=== PATIENT | female | born 1975 | race Two or more races ===

== ENCOUNTER 2016-11-30 23:10 | Emergency (ER) | payer MEDICAID ==
[2016-11-30] MEDS ORDERED: Sodium Chloride 0.9% 1,000 ML IV SCH (23:45)
[2016-12-01] MEDS ORDERED: Pantoprazole 40 MG Vial IVPUSH ONE (00:10)
[2016-12-01] MEDS ORDERED: HYDROmorphone 1 MG/ML Syringe IVPUSH ONE ×2 (00:24→03:03)
[2016-12-01] MEDS ORDERED: NS + KCl 20mEq/L 1,000 ML IV SCH (03:15)
[2016-12-01] MEDS ORDERED: Piperacillin/Tazobactam 3.375 GM in Sodium Chloride 0.9% 50 ML IV SCH (03:15)
[2016-12-01 03:18] VITALS: BP 139/79
--- NOTE | 2016-12-01 03:18 | EDM.PDOC ---
ED HPI GENERAL MEDICAL PROBLEM - General Chief Complaint: Gastrointestinal Problem Stated Complaint: MEDICAL [facility] Time Seen by Provider: 11/30/16 23:23 Source of Information: Reports: Patient History Limitations: Reports: No Limitations - History of Present Illness INITIAL COMMENTS - FREE TEXT/NARRATIVE: History of present illness: [41-year-old female whose presenting with a history of chronic alcoholism and cirrhosis and a history of hematemesis requiring blood transfusions when she was living in [facility]. She received 3 units at that time and endoscopy at that time did show a column of esophageal varices. She presents now with an episode of hematemesis at about 10 PM. She's had no further emesis she's had no fevers or chills cough cold symptoms shortness of breath no chest pain has some mild abdominal discomfort which is chronic for her constipation diarrhea or dysuria. She recently was treated for a UTI with Bactrim and I think is just finishing that up.] Review of systems: As per history of present illness and below otherwise all systems reviewed and negative. Past medical history: As per history of present illness and as reviewed below otherwise noncontributory. Surgical history: As per history of present illness and as reviewed below otherwise noncontributory. Social history: No reported history of drug or alcohol abuse. Family history: As per history of present illness and as reviewed below otherwise noncontributory. Physical exam: Gen.: She is an alert pleasant woman that is not slurring her speech but does display signs of chronic cirrhosis with jaundice and discoloration of her skin. HEENT: Atraumatic, normocephalic, pupils reactive, negative for conjunctival pallor or scleral icterus, mucous membranes moist, throat clear, neck supple, nontender, trachea midline. Lungs: Clear to auscultation, breath sounds equal bilaterally, chest nontender. Heart: S1S2, regular, negative for clicks, rubs, or JVD. Abdomen: She has tenderness to palpation across her upper abdomen and seems to have some right lower quadrant tenderness as well. Her abdomen is slightly distended and firm. No clear rebound or peritoneal signs. Extremities: Atraumatic, negative for cords or calf pain. Neurovascular unremarkable. Neuro: Awake, alert, oriented. Cranial nerves II through XII unremarkable. Cerebellum unremarkable. Motor and sensory unremarkable throughout. Exam nonfocal. Diagnostics: [CBC shows an elevated white count of 17,500 her hemoglobin is 9.2 MCV is 100 on her complete metabolic panel her sodium and potassium was slightly low her hepatic panel showed elevation of her transaminases and alkaline phosphatase her lipase and amylase were also elevated. Abdominal pelvic CT did show hepatic cirrhosis with portal hypertension but also there was evidence for septic emboli in the middle and lower lobes of the right lung] Therapeutics: [I spoke with the hospitalist in [place] and and will be transferring her there for care. Prior to leaving we're doing blood cultures 2 and giving her 3.375 g of Zosyn IV fluids are also started with potassium chloride] Impression: [] Plan: [] Definitive disposition and diagnosis as appropriate pending reevaluation and review of above. Lower Back Pain Score (Numeric/FACES): 8 - Related Data Allergies Allergy/AdvReac Type Severity Reaction Status Date / Time morphine Allergy Tachycardia Verified 11/30/16 23:31 sumatriptan [From Imitrex] Allergy Tachycardia Verified 11/30/16 23:31 vancomycin Allergy Anaphylactic Verified 11/30/16 23:31 Shock Home Meds: Home Meds ALPRAZolam [Xanax] 0.5 mg PO DAILY PRN 12/01/16 [History] Acetaminophen [Tylenol] 650 mg PO Q6H PRN 12/01/16 [History] Citalopram Hydrobromide [Celexa] 40 mg PO DAILY 12/01/16 [History] Dextroamphetamine/Amphetamine [Adderall 30 mg Tablet] 60 mg PO TID 12/01/16 [ History] Furosemide [Lasix] 40 mg PO DAILY 12/01/16 [History] Sulfamethoxazole/Trimethoprim [Bactrim Ds Tablet] 1 each PO TID 12/01/16 [ History] Triamcinolone Acetonide [Kenalog 0.1% Crm] 0 gm TOP TID PRN 12/01/16 [History] tiZANidine HCl [Zanaflex] 4 mg PO TID 12/01/16 [History] Past Medical History Gastrointestinal History: Reports: Cirrhosis [employer] History: Reports: Psychiatric History: Reports: ADHD, Addiction Immunologic History: Reports: Other (See Below) Other Immunologic History: lupus and fibromyalgia Dermatologic History: Reports: Psoriasis - Past Surgical History GI Surgical History: Reports: Cholecystectomy Social & Family History - Tobacco Use Smoking Status *Q: Current Every Day Smoker Years of Tobacco use: 14 Packs/Tins Daily: 0.5 - Caffeine Use Caffeine Use: Reports: None - Alcohol Use Days Per Week of Alcohol Use: 7 Number of Drinks Per Day: 2 Total Drinks Per Week: 14 - Recreational Drug Use Recreational Drug Use: No ED ROS GENERAL - Review of Systems Review Of Systems: ROS reveals no pertinent complaints other than HPI. ED EXAM, GENERAL - Physical Exam Exam: See Below Course - Vital Signs Last Recorded V/S: Last Vital Signs Temp 37.0 C 11/30/16 23:32 Pulse 94 11/30/16 23:32 Resp 18 11/30/16 23:32 BP 119/75 12/01/16 01:37 Pulse Ox 95 11/30/16 23:32 - Orders/Labs/Meds Orders: Active Orders 24 hr Category Date Time Status Abdomen Pelvis wo Cont [CT] Stat Exams 12/01/16 00:35 Taken Chest 2V [CR] Stat Exams 12/01/16 01:54 Taken CULTURE BLOOD [BC] Stat Lab 12/01/16 03:00 Ordered CULTURE BLOOD [BC] Stat Lab 12/01/16 03:01 Ordered PATIENT RETYPE [BBK] Stat Lab 11/30/16 23:45 Results RED BLOOD CELLS LP [BBK] Stat Lab 11/30/16 23:45 Results TYPE AND SCREEN [BBK] Stat Lab 11/30/16 23:45 Results Piperacillin/Tazobactam [Zosyn] 3.375 gm Med 12/01/16 03:15 Ordered Sodium Chloride 0.9% [Normal Saline] 50 ml IV Q6H Sodium Chloride 0.9% [Normal Saline] 1,000 ml Med 11/30/16 23:45 Active IV ASDIRECTED Sodium Chloride 0.9% with KCl 20 mEq @ 150 mL/Hr (1000 Med 12/01/16 03:15 Ordered mL) NS + KCl 20mEq/L [Normal Saline with 20 mEq KCl] 1,000 ml IV ASDIRECTED Medication Orders Sodium Chloride (Normal Saline) 1,000 mls @ 250 mls/hr IV ASDIRECTED NANDA Last Admin: 12/01/16 00:18 Dose: 250 mls/hr Piperacillin Sod/Tazobactam (Sod 3.375 gm/ Sodium Chloride) 50 mls @ 100 mls/ hr IV Q6H NANDA Potassium Chloride/Sodium Chloride (Normal Saline With 20 Meq Kcl) 1,000 mls @ 150 mls/hr IV ASDIRECTED [facility] Labs: Laboratory Tests 11/30/16 11/30/16 11/30/16 Range/Units 23:45 23:45 23:45 WBC 17.5 H (4.5-11.0) K/uL RBC 2.75 L (3.30-5.50) M/uL Hgb 9.2 L (12.0-15.0) g/dL Hct 27.6 L (36.0-48.0) % MCV 100 H (80-98) fL MCH 34 H (27-31) pg MCHC 33 (32-36) % Plt Count 95 L (150-400) K/uL Neut % (Auto) 76 H (36-66) % Lymph % (Auto) 12 L (24-44) % [place] % (Auto) 11 H (2-6) % Eos % (Auto) 0 L (2-4) % Baso % (Auto) 1 (0-1) % PT (9.5-12.0) sec INR (0.80-1.20) Sodium 138 L (140-148) mmol/L Potassium 3.2 L (3.6-5.2) mmol/L Chloride 102 (100-108) mmol/L Carbon Dioxide 30 (21-32) mmol/L Anion Gap 9.2 (5.0-14.0) mmol/L BUN 24 H (7-18) mg/dL Creatinine 1.2 H (0.6-1.0) mg/dL Est Cr Clr Drug Dosing 62.86 mL/min Estimated GFR (MDRD) 50 L (>60) Glucose 117 H (74-106) mg/dL Calcium 7.5 L (8.5-10.1) mg/dL Total Bilirubin 5.2 H (0.2-1.0) mg/dL Direct Bilirubin 4.00 H (0.0-0.2) mg/dL Indirect Bilirubin 1.20 AST 345 H (15-37) U/L ALT 95 H (12-78) U/L Alkaline Phosphatase 232 H (46-116) U/L C-Reactive Protein 0.81 H (0.0-0.3) mg/dL Total Protein 7.6 (6.4-8.2) g/dL Albumin 2.3 L (3.4-5.0) g/dL Globulin 5.3 H (2.3-3.5) g/dL Albumin/Globulin Ratio 0.4 L (1.2-2.2) Amylase 134 H (25-115) U/L Lipase 750 H (73-393) U/L Urine Color Urine Appearance Urine pH (4.5-8.0) Ur Specific [place] (1.008-1.030) Urine Protein (NEGATIVE) mg/dL Urine Glucose (UA) (NEGATIVE) mg/dL Urine Ketones (NEGATIVE) mg/dL Urine Occult Blood (NEGATIVE) Urine Nitrite (NEGATIVE) Urine Bilirubin (NEGATIVE) Urine Urobilinogen (NORMAL) mg/dL Ur Leukocyte Esterase (NEGATIVE) Urine RBC (0-5) Urine WBC (0-5) Ur Epithelial Cells Amorphous Sediment Urine Bacteria Urine Mucus Urine Opiates Screen (NEGATIVE) Ur Oxycodone Screen (NEGATIVE) Urine Methadone Screen (NEGATIVE) Ur Propoxyphene Screen (NEGATIVE) Ur Barbiturates Screen (NEGATIVE) Ur Tricyclics Screen (NEGATIVE) Ur Phencyclidine Scrn (NEGATIVE) Ur Amphetamine Screen (NEGATIVE) U Methamphetamines Scrn (NEGATIVE) Urine MDMA Screen (NEGATIVE) U Benzodiazepines Scrn (NEGATIVE) U Cocaine Metab Screen (NEGATIVE) U Marijuana (THC) Screen (NEGATIVE) Ethyl Alcohol 375 mg/dL Blood Type Gel Antibody Screen Crossmatch 11/30/16 11/30/16 12/01/16 Range/Units 23:45 23:45 00:17 WBC (4.5-11.0) K/uL RBC (3.30-5.50) M/uL Hgb (12.0-15.0) g/dL Hct (36.0-48.0) % MCV (80-98) fL MCH (27-31) pg MCHC (32-36) % Plt Count (150-400) K/uL Neut % (Auto) (36-66) % Lymph % (Auto) (24-44) % [place] % (Auto) (2-6) % Eos % (Auto) (2-4) % Baso % (Auto) (0-1) % PT 16.1 H (9.5-12.0) sec INR 1.48 H (0.80-1.20) Sodium (140-148) mmol/L Potassium (3.6-5.2) mmol/L Chloride (100-108) mmol/L Carbon Dioxide (21-32) mmol/L Anion Gap (5.0-14.0) mmol/L BUN (7-18) mg/dL Creatinine (0.6-1.0) mg/dL Est Cr Clr Drug Dosing mL/min Estimated GFR (MDRD) (>60) Glucose (74-106) mg/dL Calcium (8.5-10.1) mg/dL Total Bilirubin (0.2-1.0) mg/dL Direct Bilirubin (0.0-0.2) mg/dL Indirect Bilirubin AST (15-37) U/L ALT (12-78) U/L Alkaline Phosphatase (46-116) U/L C-Reactive Protein (0.0-0.3) mg/dL Total Protein (6.4-8.2) g/dL Albumin (3.4-5.0) g/dL Globulin (2.3-3.5) g/dL Albumin/Globulin Ratio (1.2-2.2) Amylase (25-115) U/L Lipase (73-393) U/L Urine Color Yellow Urine Appearance Clear Urine pH 6.0 (4.5-8.0) Ur Specific [place] 1.010 (1.008-1.030) Urine Protein Negative (NEGATIVE) mg/dL Urine Glucose (UA) Normal (NEGATIVE) mg/dL Urine Ketones Negative (NEGATIVE) mg/dL Urine Occult Blood Trace (NEGATIVE) Urine Nitrite Negative (NEGATIVE) Urine Bilirubin Negative (NEGATIVE) Urine Urobilinogen 1 (NORMAL) mg/dL Ur Leukocyte Esterase Negative (NEGATIVE) Urine RBC 0-5 (0-5) Urine WBC 0-5 (0-5) Ur Epithelial Cells Moderate Amorphous Sediment Not seen Urine Bacteria Few Urine Mucus Not seen Urine Opiates Screen (NEGATIVE) Ur Oxycodone Screen (NEGATIVE) Urine Methadone Screen (NEGATIVE) Ur Propoxyphene Screen (NEGATIVE) Ur Barbiturates Screen (NEGATIVE) Ur Tricyclics Screen (NEGATIVE) Ur Phencyclidine Scrn (NEGATIVE) Ur Amphetamine Screen (NEGATIVE) U Methamphetamines Scrn (NEGATIVE) Urine MDMA Screen (NEGATIVE) U Benzodiazepines Scrn (NEGATIVE) U Cocaine Metab Screen (NEGATIVE) U Marijuana (THC) Screen (NEGATIVE) Ethyl Alcohol mg/dL Blood Type A POSITIVE Gel Antibody Screen Negative Crossmatch See Detail 12/01/16 Range/Units 00:17 WBC (4.5-11.0) K/uL RBC (3.30-5.50) M/uL Hgb (12.0-15.0) g/dL Hct (36.0-48.0) % MCV (80-98) fL MCH (27-31) pg MCHC (32-36) % Plt Count (150-400) K/uL Neut % (Auto) (36-66) % Lymph % (Auto) (24-44) % [place] % (Auto) (2-6) % Eos % (Auto) (2-4) % Baso % (Auto) (0-1) % PT (9.5-12.0) sec INR (0.80-1.20) Sodium (140-148) mmol/L Potassium (3.6-5.2) mmol/L Chloride (100-108) mmol/L Carbon Dioxide (21-32) mmol/L Anion Gap (5.0-14.0) mmol/L BUN (7-18) mg/dL Creatinine (0.6-1.0) mg/dL Est Cr Clr Drug Dosing mL/min Estimated GFR (MDRD) (>60) Glucose (74-106) mg/dL Calcium (8.5-10.1) mg/dL Total Bilirubin (0.2-1.0) mg/dL Direct Bilirubin (0.0-0.2) mg/dL Indirect Bilirubin AST (15-37) U/L ALT (12-78) U/L Alkaline Phosphatase (46-116) U/L C-Reactive Protein (0.0-0.3) mg/dL Total Protein (6.4-8.2) g/dL Albumin (3.4-5.0) g/dL Globulin (2.3-3.5) g/dL Albumin/Globulin Ratio (1.2-2.2) Amylase (25-115) U/L Lipase (73-393) U/L Urine Color Urine Appearance Urine pH (4.5-8.0) Ur Specific [place] (1.008-1.030) Urine Protein (NEGATIVE) mg/dL Urine Glucose (UA) (NEGATIVE) mg/dL Urine Ketones (NEGATIVE) mg/dL Urine Occult Blood (NEGATIVE) Urine Nitrite (NEGATIVE) Urine Bilirubin (NEGATIVE) Urine Urobilinogen (NORMAL) mg/dL Ur Leukocyte Esterase (NEGATIVE) Urine RBC (0-5) Urine WBC (0-5) Ur Epithelial Cells Amorphous Sediment Urine Bacteria Urine Mucus Urine Opiates Screen Negative (NEGATIVE) Ur Oxycodone Screen Negative (NEGATIVE) Urine Methadone Screen Negative (NEGATIVE) Ur Propoxyphene Screen Negative (NEGATIVE) Ur Barbiturates Screen Negative (NEGATIVE) Ur Tricyclics Screen Negative (NEGATIVE) Ur Phencyclidine Scrn Negative (NEGATIVE) Ur Amphetamine Screen Negative (NEGATIVE) U Methamphetamines Scrn Negative (NEGATIVE) Urine MDMA Screen Negative (NEGATIVE) U Benzodiazepines Scrn Positive H (NEGATIVE) U Cocaine Metab Screen Negative (NEGATIVE) U Marijuana (THC) Screen Negative (NEGATIVE) Ethyl Alcohol mg/dL Blood Type Gel Antibody Screen Crossmatch Meds: Medications Generic Name Dose Route Start Last Admin Trade Name Freq PRN Reason Stop Dose Admin Sodium Chloride 1,000 mls @ 250 mls/hr 11/30/16 23:45 12/01/16 00:18 Normal Saline IV 250 mls/hr ASDIRECTED NANDA Administration Piperacillin Sod/Tazobactam 50 mls @ 100 mls/hr 12/01/16 03:15 Sod 3.375 gm/ Sodium Chloride IV Q6H NANDA Potassium Chloride/Sodium Chloride 1,000 mls @ 150 mls/hr 12/01/16 03:15 Normal Saline With 20 Meq Kcl IV ASDIRECTED NANDA Discontinued Medications Generic Name Dose Route Start Last Admin Trade Name Freq PRN Reason Stop Dose Admin Hydromorphone HCl 1 mg 12/01/16 00:24 12/01/16 00:58 Dilaudid IVPUSH 12/01/16 00:25 1 mg ONETIME ONE Administration Hydromorphone HCl 1 mg 12/01/16 03:03 Dilaudid IVPUSH 12/01/16 03:04 ONETIME ONE Pantoprazole Sodium 40 mg 12/01/16 00:10 12/01/16 00:29 Protonix Iv IVPUSH 12/01/16 00:11 40 mg ONETIME ONE Administration Departure - Departure Time of Disposition: 03:18 Disposition: DC/[facility]fer to [facility] 02 Clinical Impression: Cirrhosis Qualifiers: Hepatic cirrhosis type: unspecified hepatic cirrhosis Ascites presence: without ascites Qualified Code(s): K74.60 - Unspecified cirrhosis of liver Pneumonia Qualifiers: Pneumonia type: due to unspecified organism Laterality: right Lung location: unspecified part of lung Qualified Code(s): J18.9 - Pneumonia, unspecified organism Hematemesis Qualifiers: Nausea presence: with nausea Qualified Code(s): K92.0 - Hematemesis; R11.0 - Nausea Abdominal pain Qualifiers: Abdominal location: unspecified location Qualified Code(s): R10.9 - Unspecified abdominal pain Anemia Qualifiers: Anemia type: unspecified type Qualified Code(s): D64.9 - Anemia, unspecified - Discharge Information Referrals: PCP,None [Primary Care Provider] - - My Orders Last 24 Hours: My Active Orders 11/30/16 23:45 PATIENT RETYPE [BBK] Stat RED BLOOD CELLS LP [BBK] Stat TYPE AND SCREEN [BBK] Stat Sodium Chloride 0.9% [Normal Saline] 1,000 ml IV ASDIRECTED 12/01/16 00:35 Abdomen Pelvis wo Cont [CT] Stat 12/01/16 01:54 Chest 2V [CR] Stat 12/01/16 03:00 CULTURE BLOOD [BC] Stat 12/01/16 03:01 CULTURE BLOOD [BC] Stat 12/01/16 03:15 Piperacillin/Tazobactam [Zosyn] 3.375 gm Sodium Chloride 0.9% [Normal Saline] 50 ml IV Q6H Sodium Chloride 0.9% with KCl 20 mEq @ 150 mL/Hr (1000 mL) NS + KCl 20mEq/L [ Normal Saline with 20 mEq KCl] 1,000 ml IV ASDIRECTED - Assessment/Plan Last 24 Hours: My Active Orders 11/30/16 23:45 PATIENT RETYPE [BBK] Stat RED BLOOD CELLS LP [BBK] Stat TYPE AND SCREEN [BBK] Stat Sodium Chloride 0.9% [Normal Saline] 1,000 ml IV ASDIRECTED 12/01/16 00:35 Abdomen Pelvis wo Cont [CT] Stat 12/01/16 01:54 Chest 2V [CR] Stat 12/01/16 03:00 CULTURE BLOOD [BC] Stat 12/01/16 03:01 CULTURE BLOOD [BC] Stat 12/01/16 03:15 Piperacillin/Tazobactam [Zosyn] 3.375 gm Sodium Chloride 0.9% [Normal Saline] 50 ml IV Q6H Sodium Chloride 0.9% with KCl 20 mEq @ 150 mL/Hr (1000 mL) NS + KCl 20mEq/L [ Normal Saline with 20 mEq KCl] 1,000 ml IV ASDIRECTED
--- NOTE | 2016-12-02 12:40 | CR ---
Mild cardiomegaly. Left lung is clear. No definitive airspace disease evident. Refer to CT report..
== END 2016-12-01 04:07 ==
LOC: JP.ED 23:10
DX: K74.60 Unspecified cirrhosis of liver (principal); J18.9 Pneumonia, unspecified organism; K92.0 Hematemesis; D64.9 Anemia, unspecified; F90.9 Attention-deficit hyperactivity disorder, unspecified type; Z90.49 Acquired absence of other specified parts of digestive tract; F17.210 Nicotine dependence, cigarettes, uncomplicated; Z79.899 Other long term (current) drug therapy; Z88.5 Allergy status to narcotic agent; Z88.1 Allergy status to other antibiotic agents; Z88.8 Allergy status to other drugs, medicaments and biological substances
CPT/HCPCS: 36415; 71020; 74176; 80048; 80076; 80305; 81001; 82150; 83690; 85025; 85610; 86140; 86850; 86900; 86901; 86920; 86922; 87040; 96365; 96375; 96376; 99285; C9113; G0480; J1170; J2543; J3480; J7040; J7050

== ENCOUNTER 2016-12-29 18:54 | Emergency (ER) | payer MEDICAID ==
[2016-12-29] MEDS ORDERED: Sodium Chloride 0.9% 1,000 ML IV SCH (19:15)
[2016-12-29] MEDS ORDERED: Ketorolac 30 MG/ML SDV IVPUSH ONE (19:24)
[2016-12-29] MEDS ORDERED: diphenhydrAMINE 50 MG/ML SDV IVPUSH ONE (19:24)
[2016-12-29] MEDS ORDERED: Potassium Chloride 20 MEQ Tab.ER PO ONE (20:14)
[2016-12-29 20:37] VITALS: BP 138/98
[2016-12-29] MEDS ORDERED: Oxymetazoline 0.05% Nasal Spray 15 ML Bottle NAS ONE (21:08)
--- NOTE | 2016-12-29 21:09 | EDM.PDOC ---
ED HPI GENERAL MEDICAL PROBLEM - General Chief Complaint: Headache Stated Complaint: MEDICAL VIA [facility] Time Seen by Provider: 12/29/16 18:55 Source of Information: Reports: Patient History Limitations: Reports: No Limitations - History of Present Illness INITIAL COMMENTS - FREE TEXT/NARRATIVE: pt arrived with a headache. Her pulse was rapid and she has had nosebleeds. She has a history of cirrohosis and was recently in the hosp at [place] with a pneumonia. She did go through etoh withdrawal while in [place]. She did not drink for 2 days and then she started drinking alot again., Onset: Gradual Duration: Day(s):, Other (Pt has continued to drink on a regular basis. ) Location: Reports: Head Quality: Reports: Ache, Sharp, Other (pt has been having nose bleeds for the last few days. ) Associated Symptoms: Reports: Other (Pt has been eating but not well. ) Headache Pain Score (Numeric/FACES): 5 - Related Data Allergies Allergy/AdvReac Type Severity Reaction Status Date / Time morphine Allergy Tachycardia Verified 11/30/16 23:31 sumatriptan [From Imitrex] Allergy Tachycardia Verified 11/30/16 23:31 tizanidine [From Zanaflex] Allergy Nausea and Verified 12/29/16 21:08 Vomiting vancomycin Allergy Anaphylactic Verified 11/30/16 23:31 Shock Home Meds: Home Meds ALPRAZolam [Xanax] 0.5 mg PO DAILY PRN 12/01/16 [History] Acetaminophen [Tylenol] 650 mg PO Q6H PRN 12/01/16 [History] Citalopram Hydrobromide [Celexa] 40 mg PO DAILY 12/01/16 [History] Dextroamphetamine/Amphetamine [Adderall 30 mg Tablet] 60 mg PO TID 12/01/16 [ History] Furosemide [Lasix] 40 mg PO DAILY 12/01/16 [History] Triamcinolone Acetonide [Kenalog 0.1% Crm] 0 gm TOP TID PRN 12/01/16 [History] Past Medical History HEENT History: Reports: Epistaxis, Other (See Below) Other HEENT History: recent nosebleeds with clots quit 2 h ago Cardiovascular History: Reports: Other (See Below) Other Cardiovascular History: tachy Gastrointestinal History: Reports: Cirrhosis, GI Bleed, Jaundice, Other (See Below) Other Gastrointestinal History: cirrhosis hx 2 1/2 y. 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 hpv Immunologic History: Reports: Other (See Below) Other Immunologic History: lupus and fibromyalgia Dermatologic History: Reports: Psoriasis - Infectious Disease History Infectious Disease History: Reports: Human Papilloma Virus (HPV) - Past Surgical History HEENT Surgical History: Reports: Laser Surgery, Other (See Below) GI Surgical History: Reports: Cholecystectomy Social & Family History - Tobacco Use Smoking Status *Q: Current Every Day Smoker Years of Tobacco use: 23 Packs/Tins Daily: 1 - Caffeine Use Caffeine Use: Reports: None - Alcohol Use Days Per Week of Alcohol Use: 7 Number of Drinks Per Day: 2 Total Drinks Per Week: 14 Date of Last Drink: 12/29/16 Time of Last Drink: 16:45 - Recreational Drug Use Recreational Drug Use: No ED ROS GENERAL - Review of Systems Review Of Systems: See Below Constitutional: Reports: No Symptoms, Decreased Appetite HEENT: Reports: Nosebleed Respiratory: Reports: No Symptoms Cardiovascular: Reports: Palpitations, Other (pt has felt like her heart has been rapid. ) Endocrine: Reports: No Symptoms GI/Abdominal: Reports: Decreased Appetite : Reports: No Symptoms, Other ( history of frequent infections. ) Musculoskeletal: Reports: No Symptoms Skin: Reports: No Symptoms Neurological: Reports: No Symptoms - Physical Exam Exam: See Below Text/Narrative:: pt arrived and she has been drinking today . She has a headache. She was at a memorial service for her boyfriends father today so it was a very emotional day. She noted that her pulse was up and she was having the nosebleeds. Exam Limited By: No Limitations General Appearance: Alert, Anxious, Mild Distress, Other ( Pt is not having an active bleeding from the nose. She does have some clots present. in the nares. ) Ears: Normal TMs Nose: Normal Inspection Throat/Mouth: Normal Inspection Head Exam: Atraumatic, Other (pupils are equal and reactive. ) Neck: Normal Inspection Respiratory/Chest: No Respiratory Distress, Other ( Pt has good o2 sats. ) Cardiovascular: Regular Rate, Rhythm, Tachycardia, Other ( Pts pulse did come down in the 90s. ) GI/Abdominal: Soft, Non-Tender, Hepatomegaly, Other (pt does not appear distended. ) (Female) Exam: Deferred Rectal (Female) Exam: Deferred Neuro Exam (Abbreviated): Alert, Oriented, Normal Cognition, Other (pt is clearing jaundiced. ) Back Exam: Normal Inspection Extremities: Normal Inspection Psychiatric: Anxious Skin Exam: Other ( jaundiced. ) Course - Vital Signs Last Recorded V/S: Last Vital Signs Temp 37.2 C 12/29/16 18:57 Pulse 104 H 12/29/16 21:11 Resp 16 12/29/16 20:23 BP 138/98 H 12/29/16 20:23 Pulse Ox 94 L 12/29/16 20:23 - Orders/Labs/Meds Labs: Laboratory Tests 12/29/16 12/29/16 12/29/16 Range/Units 19:13 19:27 19:27 WBC 13.8 H (4.5-11.0) K/uL RBC 2.70 L (3.30-5.50) M/uL Hgb 9.4 L (12.0-15.0) g/dL Hct 29.6 L (36.0-48.0) % MCV 110 H (80-98) fL MCH 35 H (27-31) pg MCHC 32 (32-36) % Plt Count 105 L (150-400) K/uL Neut % (Auto) 62 (36-66) % Lymph % (Auto) 23 L (24-44) % [place] % (Auto) 14 H (2-6) % Eos % (Auto) 0 L (2-4) % Baso % (Auto) 1 (0-1) % PT (9.5-12.0) sec INR (0.80-1.20) APTT (27.0-36.0) sec Sodium 142 (140-148) mmol/L Potassium 3.2 L (3.6-5.2) mmol/L Chloride 106 (100-108) mmol/L Carbon Dioxide 26 (21-32) mmol/L Anion Gap 13.2 (5.0-14.0) mmol/L BUN 12 (7-18) mg/dL Creatinine 0.7 (0.6-1.0) mg/dL Est Cr Clr Drug Dosing 107.77 mL/min Estimated GFR (MDRD) > 60 (>60) Glucose 111 H (74-106) mg/dL Calcium 7.4 L (8.5-10.1) mg/dL Total Bilirubin 7.2 H (0.2-1.0) mg/dL AST 457 H (15-37) U/L ALT 115 H (12-78) U/L Alkaline Phosphatase 175 H (46-116) U/L Total Protein 7.3 (6.4-8.2) g/dL Albumin 2.2 L (3.4-5.0) g/dL Globulin 5.1 H (2.3-3.5) g/dL Albumin/Globulin Ratio 0.4 L (1.2-2.2) Amylase (25-115) U/L Lipase (73-393) U/L Urine Color Urine Appearance Cloudy Urine pH 5.0 (4.5-8.0) Ur Specific [place] 1.020 (1.008-1.030) Urine Protein 100 H (NEGATIVE) mg/dL Urine Glucose (UA) Normal (NEGATIVE) mg/dL Urine Ketones 15 H (NEGATIVE) mg/dL Urine Occult Blood Large (NEGATIVE) Urine Nitrite Positive H (NEGATIVE) Urine Bilirubin Moderate (NEGATIVE) Urine Urobilinogen >=12 H (NORMAL) mg/dL Ur Leukocyte Esterase Small (NEGATIVE) Urine RBC 0-5 (0-5) Urine WBC 0-5 (0-5) Ur Epithelial Cells Many Amorphous Sediment Few Urine Bacteria Few Urine Mucus Many Ethyl Alcohol mg/dL 12/29/16 12/29/16 12/29/16 Range/Units 19:27 19:27 19:27 WBC (4.5-11.0) K/uL RBC (3.30-5.50) M/uL Hgb (12.0-15.0) g/dL Hct (36.0-48.0) % MCV (80-98) fL MCH (27-31) pg MCHC (32-36) % Plt Count (150-400) K/uL Neut % (Auto) (36-66) % Lymph % (Auto) (24-44) % [place] % (Auto) (2-6) % Eos % (Auto) (2-4) % Baso % (Auto) (0-1) % PT 16.4 H (9.5-12.0) sec INR 1.51 H (0.80-1.20) APTT 33.2 (27.0-36.0) sec Sodium (140-148) mmol/L Potassium (3.6-5.2) mmol/L Chloride (100-108) mmol/L Carbon Dioxide (21-32) mmol/L Anion Gap (5.0-14.0) mmol/L BUN (7-18) mg/dL Creatinine (0.6-1.0) mg/dL Est Cr Clr Drug Dosing mL/min Estimated GFR (MDRD) (>60) Glucose (74-106) mg/dL Calcium (8.5-10.1) mg/dL Total Bilirubin (0.2-1.0) mg/dL AST (15-37) U/L ALT (12-78) U/L Alkaline Phosphatase (46-116) U/L Total Protein (6.4-8.2) g/dL Albumin (3.4-5.0) g/dL Globulin (2.3-3.5) g/dL Albumin/Globulin Ratio (1.2-2.2) Amylase (25-115) U/L Lipase 649 H (73-393) U/L Urine Color Urine Appearance Urine pH (4.5-8.0) Ur Specific [place] (1.008-1.030) Urine Protein (NEGATIVE) mg/dL Urine Glucose (UA) (NEGATIVE) mg/dL Urine Ketones (NEGATIVE) mg/dL Urine Occult Blood (NEGATIVE) Urine Nitrite (NEGATIVE) Urine Bilirubin (NEGATIVE) Urine Urobilinogen (NORMAL) mg/dL Ur Leukocyte Esterase (NEGATIVE) Urine RBC (0-5) Urine WBC (0-5) Ur Epithelial Cells Amorphous Sediment Urine Bacteria Urine Mucus Ethyl Alcohol 337 mg/dL 12/29/16 Range/Units 20:21 WBC (4.5-11.0) K/uL RBC (3.30-5.50) M/uL Hgb (12.0-15.0) g/dL Hct (36.0-48.0) % MCV (80-98) fL MCH (27-31) pg MCHC (32-36) % Plt Count (150-400) K/uL Neut % (Auto) (36-66) % Lymph % (Auto) (24-44) % [place] % (Auto) (2-6) % Eos % (Auto) (2-4) % Baso % (Auto) (0-1) % PT (9.5-12.0) sec INR (0.80-1.20) APTT (27.0-36.0) sec Sodium (140-148) mmol/L Potassium (3.6-5.2) mmol/L Chloride (100-108) mmol/L Carbon Dioxide (21-32) mmol/L Anion Gap (5.0-14.0) mmol/L BUN (7-18) mg/dL Creatinine (0.6-1.0) mg/dL Est Cr Clr Drug Dosing mL/min Estimated GFR (MDRD) (>60) Glucose (74-106) mg/dL Calcium (8.5-10.1) mg/dL Total Bilirubin (0.2-1.0) mg/dL AST (15-37) U/L ALT (12-78) U/L Alkaline Phosphatase (46-116) U/L Total Protein (6.4-8.2) g/dL Albumin (3.4-5.0) g/dL Globulin (2.3-3.5) g/dL Albumin/Globulin Ratio (1.2-2.2) Amylase 107 (25-115) U/L Lipase (73-393) U/L Urine Color Urine Appearance Urine pH (4.5-8.0) Ur Specific [place] (1.008-1.030) Urine Protein (NEGATIVE) mg/dL Urine Glucose (UA) (NEGATIVE) mg/dL Urine Ketones (NEGATIVE) mg/dL Urine Occult Blood (NEGATIVE) Urine Nitrite (NEGATIVE) Urine Bilirubin (NEGATIVE) Urine Urobilinogen (NORMAL) mg/dL Ur Leukocyte Esterase (NEGATIVE) Urine RBC (0-5) Urine WBC (0-5) Ur Epithelial Cells Amorphous Sediment Urine Bacteria Urine Mucus Ethyl Alcohol mg/dL Meds: Medications Discontinued Medications Generic Name Dose Route Start Last Admin Trade Name Freq PRN Reason Stop Dose Admin Citalopram Hydrobromide 10 mg 12/30/16 09:00 12/29/16 21:24 Celexa PO 10 mg DAILY NANDA Administration Citalopram Hydrobromide Confirm 12/29/16 21:22 Celexa Administered 12/29/16 21:23 Dose 10 mg .ROUTE .STK-MED ONE Diphenhydramine HCl 25 mg 12/29/16 19:24 12/29/16 19:43 Benadryl IVPUSH 12/29/16 19:25 25 mg ONETIME ONE Administration Sodium Chloride 1,000 mls @ 999 mls/hr 12/29/16 19:15 12/29/16 19:39 Normal Saline IV 999 mls/hr ASDIRECTED NANDA Administration Ketorolac Tromethamine 30 mg 12/29/16 19:24 12/29/16 19:42 Toradol IVPUSH 12/29/16 19:25 30 mg ONETIME ONE Administration Oxymetazoline HCl 2 ml 12/29/16 21:08 12/29/16 21:15 Afrin Original 0.05% Nasal [place] MELISSA 12/29/16 21:09 2 spray ONETIME ONE Administration Potassium Chloride 20 meq 12/29/16 20:14 12/29/16 20:23 Klor-Con M20 PO 12/29/16 20:15 20 meq ONETIME ONE Administration - Re-Assessments/Exams Free Text/Narrative Re-Assessment/Exam: 12/29/16 21:18 pt was given a liter of fluid. Her liver enzymes are more elevated. She has continued to drink and has a etoh level of .337. She has a bilirubin in the 7 range. Her lipase is elevated but lower than the last visit here. She has stopped her meds. She has a elevated ptt and inr. She feels she needs to be at home because how her boyfriend is doing. We discussed her drinking pattern and she clearly needs to cur 12/29/16 21:t back drasticly. Her urine looks infected. 1 Departure - Departure Time of Disposition: 21:23 Disposition: Home, Self-Care 01 Condition: Fair Clinical Impression: ETOH abuse, Jaundice, Dehydration, UTI (urinary tract infection) Cirrhosis of liver Qualifiers: Hepatic cirrhosis type: unspecified hepatic cirrhosis Ascites presence: without ascites Qualified Code(s): K74.60 - Unspecified cirrhosis of liver - Discharge Information Instructions: Alcoholic Liver Disease, Cirrhosis Referrals: PCP,None [Primary Care Provider] - Forms: ED Department Discharge Care Plan Goals: push fluids, augmentin 875 1 tab bid for urine infection, resume celexa, lasix , xanax.[address] Collin Stewart fri or fri. Pt needs to gradually stop drinking.
[2016-12-29] MEDS ORDERED: Citalopram 10 MG Tab ONE (21:22)
[2016-12-30] MEDS ORDERED: Citalopram 10 MG Tab PO SCH (09:00)
--- NOTE | 2016-12-30 10:37 | CR ---
Portable chest Comparison: 01 December 2016. There is stable mild cardiac enlargement. The vascular structures are stable. There are no infiltrate s or effusions. Impression: 1. Stable exam. No acute findings.
== END 2016-12-29 21:38 | disposition home or self-care (01) ==
LOC: JP.ED 18:54
DX: E86.0 Dehydration (principal); F10.10 Alcohol abuse, uncomplicated; N39.0 Urinary tract infection, site not specified; K74.60 Unspecified cirrhosis of liver; L40.9 Psoriasis, unspecified; F17.210 Nicotine dependence, cigarettes, uncomplicated; Z90.49 Acquired absence of other specified parts of digestive tract; Z98.890 Other specified postprocedural states; Z88.1 Allergy status to other antibiotic agents; Z88.5 Allergy status to narcotic agent; Z88.8 Allergy status to other drugs, medicaments and biological substances; Z79.899 Other long term (current) drug therapy; Y90.8 Blood alcohol level of 240 mg/100 ml or more
CPT/HCPCS: 36415; 71010; 80053; 81001; 82150; 83690; 85025; 85610; 85730; 87086; 96361; 96374; 96375; 99284; A9270; G0480; J1200; J1885; J7040; 99283

== ENCOUNTER 2017-04-30 21:07 | Emergency (ER) | payer MEDICAID ==
--- NOTE | 2017-04-30 21:55 | EDM.PDOC ---
ED HPI GENERAL MEDICAL PROBLEM - General Chief Complaint: Abdominal Pain Stated Complaint: MEDICAL VIA [facility] Time Seen by Provider: 04/30/17 21:40 Source of Information: Reports: Patient, Old Records History Limitations: Reports: No Limitations - History of Present Illness INITIAL COMMENTS - FREE TEXT/NARRATIVE: 42 yo female with known liver dz from alcohol presents with increasing ascites and RUQ pain over the past several days. Has not been to the clinic. Has been splitting her time over the past several mos between [place] and [place]. Thinks she may have a sinus infection. May have had a fever 3 days ago, not now. Her urine is dark now as it was in the past when she was jaundiced. Is drinking again at least 3 days/week. Lives now in [place]. Has seen Dr. Stewart locally. Is out of her spironolactone. Onset: Gradual Onset Date: 04/27/17 Duration: Day(s):, Getting Worse Location: Reports: Abdomen Quality: Reports: Sharp (RUQ at times) Severity: Moderate Improves with: Reports: None Worsens with: Reports: Other (? alcohol consumption.) Context: Reports: Other (Hx of liver dz) Associated Symptoms: Reports: Rash. 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 below) (none, not taking her lactulose lately) Right Abdomen Pain Score (Numeric/FACES): 9 - Related Data Allergies Allergy/AdvReac Type Severity Reaction Status Date / Time morphine Allergy Tachycardia Verified 04/30/17 21:14 sumatriptan [From Imitrex] Allergy Tachycardia Verified 04/30/17 21:14 tizanidine [From Zanaflex] Allergy Nausea and Verified 04/30/17 21:14 Vomiting vancomycin Allergy Anaphylactic Verified 04/30/17 21:14 Shock Home Meds: Home Meds Furosemide [Lasix] 40 mg PO DAILY 12/01/16 [History] Triamcinolone Acetonide [Kenalog 0.1% Crm] 0 gm TOP TID PRN 12/01/16 [History] Amoxicillin 875 mg PO BID #14 tab 04/30/17 [Rx] Ferrous Sulfate 325 mg PO DAILY 04/30/17 [History] Magnesium Oxide [Magnesium] 400 mg PO DAILY 04/30/17 [History] Midodrine 5 mg PO DAILY 04/30/17 [History] Multivitamin with Folic Acid [Thera Tablet] 400 mcg PO DAILY 04/30/17 [History] Pantoprazole Sodium 40 mg PO DAILY 04/30/17 [History] Rifaximin [Xifaxan] 550 mg PO DAILY 04/30/17 [History] Spironolactone [Aldactone] 50 mg PO DAILY 04/30/17 [History] Spironolactone [Aldactone] 50 mg PO DAILY #30 tab 04/30/17 [Rx] Past Medical History HEENT History: Reports: Epistaxis Other HEENT History: recent nosebleeds with clots quit 2 h ago Cardiovascular History: Reports: Other (See Below) Other Cardiovascular History: tachy Gastrointestinal History: Reports: Cirrhosis, GI Bleed, Jaundice, Other (See Below) Other Gastrointestinal History: cirrhosis hx 2 1/2 y. 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 hpv Immunologic History: Reports: Other (See Below) Other Immunologic History: lupus and fibromyalgia Dermatologic History: Reports: Psoriasis - Infectious Disease History Infectious Disease History: Reports: Human Papilloma Virus (HPV) - Past Surgical History HEENT Surgical History: Reports: Laser Surgery GI Surgical History: Reports: Cholecystectomy Social & Family History - Tobacco Use Smoking Status *Q: Current Every Day Smoker Years of Tobacco use: 25 Packs/Tins Daily: 0.5 - Caffeine Use Caffeine Use: Reports: None - Alcohol Use Days Per Week of Alcohol Use: 3 Number of Drinks Per Day: 4 Total Drinks Per Week: 12 Date of Last Drink: 04/30/17 Time of Last Drink: 15:30 - Recreational Drug Use Recreational Drug Use: No ED ROS GENERAL - Review of Systems Review Of Systems: See Below Constitutional: Reports: No Symptoms HEENT: Reports: Other (yellow eyes) Respiratory: Reports: No Symptoms Cardiovascular: Reports: No Symptoms Endocrine: Reports: No Symptoms GI/Abdominal: Reports: Abdominal Pain (intermittently, RUQ), Distension (ascites ). Denies: Black Stool, Bloody Stool, Constipation, Diarrhea : Reports: Other (dark urine) Musculoskeletal: Reports: No Symptoms Skin: Reports: Rash (diffuse) Neurological: Reports: No Symptoms ED EXAM, GI/ABD - Physical Exam Exam: See Below Exam Limited By: No Limitations General Appearance: Alert, WD/WN, No Apparent Distress Ears: Normal External Exam, Normal Canal, Hearing Grossly Normal Nose: Normal Inspection, Normal Mucosa, No Blood Throat/Mouth: Normal Inspection, Normal Lips, Normal Oropharynx, Normal Voice, No Airway Compromise Head: Atraumatic, Normocephalic Neck: Normal Inspection Respiratory/Chest: No Respiratory Distress, Lungs Clear, Normal Breath Sounds, No Accessory Muscle Use Cardiovascular: Regular Rate, Rhythm, Tachycardia GI/Abdominal Exam: Normal Bowel Sounds, Soft, Distended (mildy distended.), Tender (Mild RUQ tenderness.) Back Exam: Normal Inspection. No: CVA Tenderness (R), CVA Tenderness (L) Extremities: Normal Inspection, Normal Range of Motion, Non-Tender, Pedal Edema (trace to both LE's) Neurological: Alert, Oriented, CN II-XII Intact, Normal Cognition, No Motor/ Sensory Deficits Psychiatric: Normal Affect, Normal Mood Skin Exam: Warm, Dry, Intact, Rash (diffuse, slightly raised, fine.) Course - Vital Signs Last Recorded V/S: Last Vital Signs Temp 37.1 C 04/30/17 21:15 Pulse 114 H 04/30/17 21:15 Resp 16 04/30/17 21:15 BP 161/89 H 04/30/17 21:15 Pulse Ox 99 04/30/17 21:15 Orthostatic Blood Pressure [ 149/85 Standing] Orthostatic Blood Pressure [ 140/83 Sitting] Orthostatic Blood Pressure [ 129/73 Supine] - Orders/Labs/Meds Orders: Active Orders 24 hr Category Date Time Status Orthostatic Vital Signs [RC] ASDIRECTED Care 04/30/17 21:49 Active Labs: Laboratory Tests 04/30/17 04/30/17 04/30/17 Range/Units 21:55 21:55 22:17 WBC 14.8 H (4.5-11.0) K/uL RBC 3.14 L (3.30-5.50) M/uL Hgb 10.5 L (12.0-15.0) g/dL Hct 32.4 L (36.0-48.0) % MCV 103 H (80-98) fL MCH 33 H (27-31) pg MCHC 32 (32-36) % Plt Count 127 L (150-400) K/uL Sodium 144 (140-148) mmol/L Potassium 3.6 (3.6-5.2) mmol/L Chloride 109 H (100-108) mmol/L Carbon Dioxide 30 (21-32) mmol/L Anion Gap 8.6 (5.0-14.0) mmol/L BUN 10 (7-18) mg/dL Creatinine 0.8 (0.6-1.0) mg/dL Est Cr Clr Drug Dosing 92.77 mL/min Estimated GFR (MDRD) > 60 (>60) Glucose 92 (74-106) mg/dL Calcium 8.4 L (8.5-10.1) mg/dL Total Bilirubin 5.3 H (0.2-1.0) mg/dL AST 121 H (15-37) U/L ALT 53 (12-78) U/L Alkaline Phosphatase 216 H (46-116) U/L C-Reactive Protein 0.42 H (0.0-0.3) mg/dL Total Protein 6.2 L (6.4-8.2) g/dL Albumin 1.9 L (3.4-5.0) g/dL Globulin 4.3 H (2.3-3.5) g/dL Albumin/Globulin Ratio 0.4 L (1.2-2.2) Urine Color Urine Appearance Cloudy Urine pH 5.0 (4.5-8.0) Ur Specific [place] 1.025 (1.008-1.030) Urine Protein Trace (NEGATIVE) mg/dL Urine Glucose (UA) Normal (NEGATIVE) mg/dL Urine Ketones 15 H (NEGATIVE) mg/dL Urine Occult Blood Negative (NEGATIVE) Urine Nitrite Negative (NEGATIVE) Urine Bilirubin Moderate (NEGATIVE) Urine Urobilinogen 4 (NORMAL) mg/dL Ur Leukocyte Esterase Small (NEGATIVE) Urine RBC 0-5 (0-5) Urine WBC 0-5 (0-5) Ur Epithelial Cells Many Amorphous Sediment Not seen Urine Bacteria Many Urine Mucus Rare Meds: Medications Discontinued Medications Generic Name Dose Route Start Last Admin Trade Name Freq PRN Reason Stop Dose Admin Spironolactone 50 mg 04/30/17 23:13 04/30/17 23:34 Aldactone PO 04/30/17 23:14 50 mg ONETIME ONE Administration Departure - Departure Time of Disposition: 23:45 Disposition: Home, Self-Care 01 Condition: Fair Clinical Impression: ETOH abuse, Jaundice, Medical non-compliance Cirrhosis Qualifiers: Hepatic cirrhosis type: alcoholic cirrhosis Ascites presence: with ascites Qualified Code(s): K70.31 - Alcoholic cirrhosis of liver with ascites Sinusitis Qualifiers: Sinusitis location: frontal Chronicity: acute Recurrence: non-recurrent Qualified Code(s): J01.10 - Acute frontal sinusitis, unspecified - Discharge Information Referrals: PCP,None [Primary Care Provider] - Forms: ED Department Discharge - My Orders Last 24 Hours: My Active Orders 04/30/17 21:49 Orthostatic Vital Signs [RC] ASDIRECTED - Assessment/Plan Last 24 Hours: My Active Orders 04/30/17 21:49 Orthostatic Vital Signs [RC] ASDIRECTED
[2017-04-30] MEDS ORDERED: Spironolactone 25 MG Tab PO ONE (23:13)
[2017-04-30 23:37] VITALS: BP 132/72
== END 2017-05-01 00:15 | disposition home or self-care (01) ==
LOC: JP.ED 21:07
DX: K70.31 Alcoholic cirrhosis of liver with ascites (principal); J01.10 Acute frontal sinusitis, unspecified; F10.10 Alcohol abuse, uncomplicated; Z91.14 Patient's other noncompliance with medication regimen; F17.210 Nicotine dependence, cigarettes, uncomplicated; Z88.8 Allergy status to other drugs, medicaments and biological substances; Z88.5 Allergy status to narcotic agent; Z88.1 Allergy status to other antibiotic agents
CPT/HCPCS: 36415; 80053; 81001; 85027; 86140; 99284; A9270

== ENCOUNTER 2017-07-26 17:29 | Emergency (ER) | payer MEDICAID ==
[2017-07-26 17:59] VITALS: BP 162/91
--- NOTE | 2017-07-26 18:50 | EDM.PDOC ---
ED HPI GENERAL MEDICAL PROBLEM - General Chief Complaint: ENT Problem Stated Complaint: COUGHING UP BLOOD Time Seen by Provider: 07/26/17 18:05 Source of Information: Reports: Patient History Limitations: Reports: No Limitations - History of Present Illness INITIAL COMMENTS - FREE TEXT/NARRATIVE: 42-year-old female, chronic alcoholic with cirrhosis and medical noncompliance presents with several day history of sinus congestion, intermittent epistaxis, cough, and hemoptysis. No fevers or chills but she feels fatigued and has increased peripheral edema. She has been without her regular medications for the last 3 weeks. Denies any chest pain. Some shortness of breath with activity. Onset: Gradual (Over the past week) Associated Symptoms: Reports: Cough, Malaise, Shortness of Breath, Weakness. Denies: Fever/Chills, Headaches - Related Data Allergies Allergy/AdvReac Type Severity Reaction Status Date / Time morphine Allergy Tachycardia Verified 07/26/17 17:59 sumatriptan [From Imitrex] Allergy Tachycardia Verified 07/26/17 17:59 tizanidine [From Zanaflex] Allergy Nausea and Verified 07/26/17 17:59 Vomiting vancomycin Allergy Anaphylactic Verified 07/26/17 17:59 Shock Home Meds: Home Meds Furosemide [Lasix] 40 mg PO DAILY 12/01/16 [History] Triamcinolone Acetonide [Kenalog 0.1% Crm] 0 gm TOP TID PRN 12/01/16 [History] Ferrous Sulfate 325 mg PO DAILY 04/30/17 [History] Magnesium Oxide [Magnesium] 400 mg PO DAILY 04/30/17 [History] Midodrine 5 mg PO DAILY 04/30/17 [History] Multivitamin with Folic Acid [Thera Tablet] 400 mcg PO DAILY 04/30/17 [History] Pantoprazole Sodium 40 mg PO DAILY 04/30/17 [History] Rifaximin [Xifaxan] 550 mg PO DAILY 04/30/17 [History] Spironolactone [Aldactone] 50 mg PO DAILY #30 tab 04/30/17 [Rx] Past Medical History HEENT History: Reports: Epistaxis Other HEENT History: recent nosebleeds with clots quit 2 h ago Cardiovascular History: Reports: Afib, Other (See Below) Other Cardiovascular History: tachy Gastrointestinal History: Reports: Cirrhosis, GI Bleed, Jaundice, Other (See Below) Other Gastrointestinal History: cirrhosis hx 2 1/2 y. 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 hpv Immunologic History: Reports: Other (See Below) Other Immunologic History: lupus and fibromyalgia Dermatologic History: Reports: Psoriasis - Infectious Disease History Infectious Disease History: Reports: Human Papilloma Virus (HPV) - Past Surgical History HEENT Surgical History: Reports: Laser Surgery GI Surgical History: Reports: Cholecystectomy Social & Family History - Tobacco Use Smoking Status *Q: Current Every Day Smoker Years of Tobacco use: 20 Packs/Tins Daily: 0.5 - Caffeine Use Caffeine Use: Reports: None - Alcohol Use Days Per Week of Alcohol Use: 7 Number of Drinks Per Day: 3 Total Drinks Per Week: 21 Date of Last Drink: 07/26/17 - Recreational Drug Use Recreational Drug Use: Yes Recreational Drug Type: Reports: Marijuana/Hashish Recreational Drug Use Frequency: Socially ED ROS GENERAL - Review of Systems Review Of Systems: See Below Constitutional: Reports: Chills, Malaise HEENT: Reports: Sinus Problem (Congestion and drainage) Respiratory: Reports: Shortness of Breath, Cough, Hemoptysis Cardiovascular: Denies: Chest Pain, Palpitations GI/Abdominal: Reports: Nausea. Denies: Abdominal Pain, Vomiting Skin: Reports: Other Neurological: Reports: Weakness. Denies: Headache ED EXAM, GENERAL - Physical Exam Exam: See Below Exam Limited By: No Limitations General Appearance: Alert, No Apparent Distress Eye Exam: Bilateral Eye: Normal Inspection (No jaundice) Throat/Mouth: Normal Inspection Head: Atraumatic Respiratory/Chest: No Respiratory Distress, Lungs Clear Cardiovascular: Regular Rate, Rhythm, Tachycardia Extremities: Pedal Edema (She has a trace bilateral peripheral edema) Neurological: Alert, Oriented, No Motor/Sensory Deficits Skin Exam: Warm, Dry, Other (Widespread psoriasis plaques on the extremities and back) Course - Vital Signs Last Recorded V/S: Last Vital Signs Temp 96.7 F 07/26/17 17:58 Pulse 123 H 07/26/17 17:58 Resp 16 07/26/17 17:58 BP 162/91 H 07/26/17 17:58 Pulse Ox 98 07/26/17 17:58 - Orders/Labs/Meds Orders: Active Orders 24 hr Category Date Time Status Chest 2V [CR] Routine Exams 07/26/17 18:16 Taken CULTURE URINE [RM] Stat Lab 07/26/17 19:23 Received DRUG SCREEN, URINE [URCHEM] Stat Lab 07/26/17 19:00 Ordered HCG QUALITATIVE,URINE [URCHEM] Stat Lab 07/26/17 19:00 Ordered UA W/MICROSCOPIC [URIN] Urgent Lab 07/26/17 19:00 Ordered Labs: Laboratory Tests 07/26/17 07/26/17 07/26/17 Range/Units 18:27 18:27 18:27 WBC 11.4 H (4.5-11.0) K/uL RBC 3.59 (3.30-5.50) M/uL Hgb 12.1 (12.0-15.0) g/dL Hct 36.3 (36.0-48.0) % MCV 101 H (80-98) fL MCH 34 H (27-31) pg MCHC 33 (32-36) % Plt Count 93 L (150-400) K/uL Neut % (Auto) 49 (36-66) % Lymph % (Auto) 38 (24-44) % [place] % (Auto) 11 H (2-6) % Eos % (Auto) 2 (2-4) % Baso % (Auto) 1 (0-1) % Sodium 143 (140-148) mmol/L Potassium 4.1 (3.6-5.2) mmol/L Chloride 108 (100-108) mmol/L Carbon Dioxide 26 (21-32) mmol/L Anion Gap 8.9 (5.0-14.0) mmol/L BUN 9 (7-18) mg/dL Creatinine 0.7 (0.6-1.0) mg/dL Est Cr Clr Drug Dosing 106.69 mL/min Estimated GFR (MDRD) > 60 (>60) Glucose 113 H (74-106) mg/dL Calcium 7.7 L (8.5-10.1) mg/dL Total Bilirubin 4.6 H (0.2-1.0) mg/dL AST 295 H D (15-37) U/L ALT 86 H (12-78) U/L Alkaline Phosphatase 226 H (46-116) U/L Ammonia 13 (11-32) mmol/L Total Protein 7.2 (6.4-8.2) g/dL Albumin 2.4 L (3.4-5.0) g/dL Globulin 4.8 H (2.3-3.5) g/dL Albumin/Globulin Ratio 0.5 L (1.2-2.2) Urine Color Urine Appearance Urine pH (4.5-8.0) Ur Specific [place] (1.008-1.030) Urine Protein (NEGATIVE) mg/dL Urine Glucose (UA) (NEGATIVE) mg/dL Urine Ketones (NEGATIVE) mg/dL Urine Occult Blood (NEGATIVE) Urine Nitrite (NEGATIVE) Urine Bilirubin (NEGATIVE) Urine Urobilinogen (NORMAL) mg/dL Ur Leukocyte Esterase (NEGATIVE) Urine RBC (0-5) Urine WBC (0-5) Ur Epithelial Cells Amorphous Sediment Urine Bacteria Urine Mucus Urine HCG, Qual Urine Opiates Screen (NEGATIVE) Ur Oxycodone Screen (NEGATIVE) Urine Methadone Screen (NEGATIVE) Ur Propoxyphene Screen (NEGATIVE) Ur Barbiturates Screen (NEGATIVE) Ur Tricyclics Screen (NEGATIVE) Ur Phencyclidine Scrn (NEGATIVE) Ur Amphetamine Screen (NEGATIVE) U Methamphetamines Scrn (NEGATIVE) Urine MDMA Screen (NEGATIVE) U Benzodiazepines Scrn (NEGATIVE) U Cocaine Metab Screen (NEGATIVE) U Marijuana (THC) Screen (NEGATIVE) Ethyl Alcohol mg/dL 07/26/17 07/26/17 07/26/17 Range/Units 18:27 19:00 19:00 WBC (4.5-11.0) K/uL RBC (3.30-5.50) M/uL Hgb (12.0-15.0) g/dL Hct (36.0-48.0) % MCV (80-98) fL MCH (27-31) pg MCHC (32-36) % Plt Count (150-400) K/uL Neut % (Auto) (36-66) % Lymph % (Auto) (24-44) % [place] % (Auto) (2-6) % Eos % (Auto) (2-4) % Baso % (Auto) (0-1) % Sodium (140-148) mmol/L Potassium (3.6-5.2) mmol/L Chloride (100-108) mmol/L Carbon Dioxide (21-32) mmol/L Anion Gap (5.0-14.0) mmol/L BUN (7-18) mg/dL Creatinine (0.6-1.0) mg/dL Est Cr Clr Drug Dosing mL/min Estimated GFR (MDRD) (>60) Glucose (74-106) mg/dL Calcium (8.5-10.1) mg/dL Total Bilirubin (0.2-1.0) mg/dL AST (15-37) U/L ALT (12-78) U/L Alkaline Phosphatase (46-116) U/L Ammonia (11-32) mmol/L Total Protein (6.4-8.2) g/dL Albumin (3.4-5.0) g/dL Globulin (2.3-3.5) g/dL Albumin/Globulin Ratio (1.2-2.2) Urine Color [place] Urine Appearance Cloudy Urine pH 6.0 (4.5-8.0) Ur Specific [place] 1.020 (1.008-1.030) Urine Protein 30 H (NEGATIVE) mg/dL Urine Glucose (UA) Normal (NEGATIVE) mg/dL Urine Ketones Negative (NEGATIVE) mg/dL Urine Occult Blood Moderate (NEGATIVE) Urine Nitrite Negative (NEGATIVE) Urine Bilirubin Moderate (NEGATIVE) Urine Urobilinogen >=12 H (NORMAL) mg/dL Ur Leukocyte Esterase Moderate (NEGATIVE) Urine RBC 10-20 H (0-5) Urine WBC 10-20 H (0-5) Ur Epithelial Cells Many Amorphous Sediment Few Urine Bacteria Many Urine Mucus Not seen Urine HCG, Qual Negative Urine Opiates Screen (NEGATIVE) Ur Oxycodone Screen (NEGATIVE) Urine Methadone Screen (NEGATIVE) Ur Propoxyphene Screen (NEGATIVE) Ur Barbiturates Screen (NEGATIVE) Ur Tricyclics Screen (NEGATIVE) Ur Phencyclidine Scrn (NEGATIVE) Ur Amphetamine Screen (NEGATIVE) U Methamphetamines Scrn (NEGATIVE) Urine MDMA Screen (NEGATIVE) U Benzodiazepines Scrn (NEGATIVE) U Cocaine Metab Screen (NEGATIVE) U Marijuana (THC) Screen (NEGATIVE) Ethyl Alcohol 420 mg/dL 07/26/17 Range/Units 19:00 WBC (4.5-11.0) K/uL RBC (3.30-5.50) M/uL Hgb (12.0-15.0) g/dL Hct (36.0-48.0) % MCV (80-98) fL MCH (27-31) pg MCHC (32-36) % Plt Count (150-400) K/uL Neut % (Auto) (36-66) % Lymph % (Auto) (24-44) % [place] % (Auto) (2-6) % Eos % (Auto) (2-4) % Baso % (Auto) (0-1) % Sodium (140-148) mmol/L Potassium (3.6-5.2) mmol/L Chloride (100-108) mmol/L Carbon Dioxide (21-32) mmol/L Anion Gap (5.0-14.0) mmol/L BUN (7-18) mg/dL Creatinine (0.6-1.0) mg/dL Est Cr Clr Drug Dosing mL/min Estimated GFR (MDRD) (>60) Glucose (74-106) mg/dL Calcium (8.5-10.1) mg/dL Total Bilirubin (0.2-1.0) mg/dL AST (15-37) U/L ALT (12-78) U/L Alkaline Phosphatase (46-116) U/L Ammonia (11-32) mmol/L Total Protein (6.4-8.2) g/dL Albumin (3.4-5.0) g/dL Globulin (2.3-3.5) g/dL Albumin/Globulin Ratio (1.2-2.2) Urine Color Urine Appearance Urine pH (4.5-8.0) Ur Specific [place] (1.008-1.030) Urine Protein (NEGATIVE) mg/dL Urine Glucose (UA) (NEGATIVE) mg/dL Urine Ketones (NEGATIVE) mg/dL Urine Occult Blood (NEGATIVE) Urine Nitrite (NEGATIVE) Urine Bilirubin (NEGATIVE) Urine Urobilinogen (NORMAL) mg/dL Ur Leukocyte Esterase (NEGATIVE) Urine RBC (0-5) Urine WBC (0-5) Ur Epithelial Cells Amorphous Sediment Urine Bacteria Urine Mucus Urine HCG, Qual Urine Opiates Screen Negative (NEGATIVE) Ur Oxycodone Screen Negative (NEGATIVE) Urine Methadone Screen Negative (NEGATIVE) Ur Propoxyphene Screen Negative (NEGATIVE) Ur Barbiturates Screen Negative (NEGATIVE) Ur Tricyclics Screen Negative (NEGATIVE) Ur Phencyclidine Scrn Negative (NEGATIVE) Ur Amphetamine Screen Negative (NEGATIVE) U Methamphetamines Scrn Negative (NEGATIVE) Urine MDMA Screen Negative (NEGATIVE) U Benzodiazepines Scrn Negative (NEGATIVE) U Cocaine Metab Screen Negative (NEGATIVE) U Marijuana (THC) Screen Negative (NEGATIVE) Ethyl Alcohol mg/dL - Re-Assessments/Exams Free Text/Narrative Re-Assessment/Exam: 07/26/17 18:49 A two-view chest x-ray was obtained along with CBC and CMP with ammonia level. An EtOH was drawn. A urine was obtained for urine , UA and urine tox screen. 07/26/17 19:13 Hemoglobin was normal. Chemistry profile revealed a bilirubin of 4.6 which is actually the best level she's had over the past year compared to previous levels. Ammonia was only 13. Blood alcohol was 0.42. All her other liver enzymes were elevated as well. White count was 11,400. Urine was negative, urine tox screen was negative but she did have 10-20 RBCs and WBCs with bacteria so a culture was initiated. 07/26/17 19:23 Patient was placed on ciprofloxacin 250 mg twice daily for 3 days, and given prescriptions for 2 weeks of furosemide 40 mg daily, and spironolactone 50 mg daily. She needs to recheck with her primary provider this week for a recheck. Departure - Departure Time of Disposition: 19:34 Disposition: Home, Self-Care 01 Condition: Fair Clinical Impression: Bronchitis Alcohol intoxication Qualifiers: Complication of substance-induced condition: uncomplicated Qualified Code(s): F10.920 - Alcohol use, unspecified with intoxication, uncomplicated UTI (urinary tract infection) Qualifiers: Urinary tract infection type: acute cystitis Hematuria presence: with hematuria Qualified Code(s): N30.01 - Acute cystitis with hematuria - Discharge Information Instructions: Acute Bronchitis, Adult, [id number] Referrals: Vijay Stewart Sr, MD [Primary Care Provider] - Forms: ED Department Discharge Care Plan Goals: Take antibiotic twice daily for 3 days, fill prescriptions for furosemide and spironolactone and take as directed. Recheck this week with Dr. Stewart. Consuming any alcohol is going to continue to make you sicker. - My Orders Last 24 Hours: My Active Orders 07/26/17 18:16 Chest 2V [CR] Routine 07/26/17 19:00 DRUG SCREEN, URINE [URCHEM] Stat HCG QUALITATIVE,URINE [URCHEM] Stat UA W/MICROSCOPIC [URIN] Urgent 07/26/17 19:23 CULTURE URINE [RM] Stat - Assessment/Plan Last 24 Hours: My Active Orders 07/26/17 18:16 Chest 2V [CR] Routine 07/26/17 19:00 DRUG SCREEN, URINE [URCHEM] Stat HCG QUALITATIVE,URINE [URCHEM] Stat UA W/MICROSCOPIC [URIN] Urgent 07/26/17 19:23 CULTURE URINE [RM] Stat
--- NOTE | 2017-07-28 10:28 | CR ---
Chest 2V INDICATION: dyspnea COMPARISON: 12/29/2016 FINDINGS: Two views. Heart upper limits of normal in size. No infiltrates, pleural effusions, or signs of pulmonary edema.
== END 2017-07-26 19:33 | disposition home or self-care (01) ==
LOC: JP.ED 17:29
DX: J40 Bronchitis, not specified as acute or chronic (principal); F10.120 Alcohol abuse with intoxication, uncomplicated; Y90.8 Blood alcohol level of 240 mg/100 ml or more; N30.01 Acute cystitis with hematuria; F17.210 Nicotine dependence, cigarettes, uncomplicated; Z88.5 Allergy status to narcotic agent; Z88.8 Allergy status to other drugs, medicaments and biological substances
CPT/HCPCS: 36415; 71046; 80053; 80305; 81001; 81025; 82140; 85025; 87086; 87088; 87186; 99284; G0480

== ENCOUNTER 2017-08-09 14:16 | Emergency (ER) | payer MEDICAID ==
[2017-08-09 14:31] VITALS: BP 142/76
--- NOTE | 2017-08-09 15:03 | EDM.PDOC ---
ED HPI GENERAL MEDICAL PROBLEM - General Chief Complaint: General Stated Complaint: POSSIBLE BLOOD CLOT IN RT LEG Time Seen by Provider: 08/09/17 14:40 Source of Information: Reports: Patient, Old Records History Limitations: Reports: No Limitations - History of Present Illness INITIAL COMMENTS - FREE TEXT/NARRATIVE: 42 yo non-compliant female alcoholic presents with pain and swelling since yesterday to her R medial thigh. She denies exertion or injury to the area. She called the clinic and was referred to the ER. Says she bruises easily and gets nose bleeds often. 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: Other (see below) (none) right thigh Pain Score (Numeric/FACES): 6 - Related Data Allergies Allergy/AdvReac Type Severity Reaction Status Date / Time morphine Allergy Tachycardia Verified 08/09/17 14:32 sumatriptan [From Imitrex] Allergy Tachycardia Verified 08/09/17 14:32 tizanidine [From Zanaflex] Allergy Nausea and Verified 08/09/17 14:32 Vomiting vancomycin Allergy Anaphylactic Verified 08/09/17 14:32 Shock Home Meds: Home Meds Furosemide [Lasix] 40 mg PO DAILY 12/01/16 [History] Triamcinolone Acetonide [Kenalog 0.1% Crm] 0 gm TOP TID PRN 12/01/16 [History] Ferrous Sulfate 325 mg PO DAILY 04/30/17 [History] Magnesium Oxide [Magnesium] 400 mg PO DAILY 04/30/17 [History] Midodrine 5 mg PO DAILY 04/30/17 [History] Multivitamin with Folic Acid [Thera Tablet] 400 mcg PO DAILY 04/30/17 [History] Pantoprazole Sodium 40 mg PO DAILY 04/30/17 [History] Rifaximin [Xifaxan] 550 mg PO DAILY 04/30/17 [History] Spironolactone [Aldactone] 50 mg PO DAILY #30 tab 04/30/17 [Rx] oxyCODONE HCl [Oxaydo] 5 mg PO Q4HR PRN #14 tablet.orl 08/09/17 [Rx] Past Medical History HEENT History: Reports: Epistaxis Other HEENT History: recent nosebleeds with clots quit 2 h ago Cardiovascular History: Reports: Afib, Other (See Below) Other Cardiovascular History: tachy Respiratory History: Reports: Other (See Below) Other Respiratory History: upper respiratory failure. history of intubation Gastrointestinal History: Reports: Cirrhosis, GI Bleed, Jaundice, Other (See Below) Other Gastrointestinal History: cirrhosis hx 2 1/2 y. 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 hpv Immunologic History: Reports: Other (See Below) Other Immunologic History: lupus and fibromyalgia Dermatologic History: Reports: Psoriasis - Infectious Disease History Infectious Disease History: Reports: Human Papilloma Virus (HPV) - Past Surgical History HEENT Surgical History: Reports: Laser Surgery GI Surgical History: Reports: Cholecystectomy Social & Family History - Tobacco Use Smoking Status *Q: Current Every Day Smoker Years of Tobacco use: 15 Packs/Tins Daily: 1 - Caffeine Use Caffeine Use: Reports: None - Alcohol Use Days Per Week of Alcohol Use: 7 Number of Drinks Per Day: 3 Total Drinks Per Week: 21 - Recreational Drug Use Recreational Drug Use: Yes Recreational Drug Use Frequency: Monthly ED ROS GENERAL - Review of Systems Review Of Systems: See Below Constitutional: Reports: No Symptoms HEENT: Reports: No Symptoms Respiratory: Reports: No Symptoms Cardiovascular: Reports: No Symptoms GI/Abdominal: Reports: No Symptoms : Reports: No Symptoms Musculoskeletal: Reports: Leg Pain (R thigh medially with some mild swelling.) Skin: Reports: Bruising (R medial thigh) Neurological: Reports: No Symptoms ED EXAM, GENERAL - Physical Exam Exam: See Below Exam Limited By: No Limitations General Appearance: Alert, WD/WN, No Apparent Distress Eye Exam: Bilateral Eye: Other (mild scleral icterus) Ears: Normal External Exam, Normal Canal, Hearing Grossly Normal Ear Exam: Bilateral Ear: Auricle Normal, Canal Normal Nose: Normal Inspection, Normal Mucosa, No Blood Throat/Mouth: Normal Inspection, Normal Lips, Normal Oropharynx, Normal Voice, No Airway Compromise Head: Atraumatic, Normocephalic Neck: Normal Inspection Respiratory/Chest: No Respiratory Distress, Lungs Clear, Normal Breath Sounds, No Accessory Muscle Use Cardiovascular: Regular Rate, Rhythm, No Edema GI/Abdominal: Normal Bowel Sounds, Non-Tender, No Distention Back Exam: Normal Inspection. No: CVA Tenderness (R), CVA Tenderness (L) Extremities: Normal Range of Motion, Other (Tenderness to the medial R thigh with bruising medially. Mild diffuse thigh swelling. No swelling distally below the knee. No calf pain.). No: Increased Warmth Neurological: Alert, Oriented, CN II-XII Intact, Normal Cognition, No Motor/ Sensory Deficits Psychiatric: Normal Affect, Normal Mood Skin Exam: Warm, Dry, Intact, No Rash, Ecchymosis (R medial thigh) Course - Vital Signs Last Recorded V/S: Last Vital Signs Temp 35.8 C 08/09/17 14:30 Pulse 115 H 08/09/17 14:30 Resp 16 08/09/17 14:30 BP 142/76 H 08/09/17 14:30 Pulse Ox 98 08/09/17 14:30 Departure - Departure Time of Disposition: 15:08 Disposition: Home, Self-Care 01 Condition: Fair Clinical Impression: Liver disease due to alcohol Thigh hematoma Qualifiers: Encounter type: initial encounter Laterality: right Qualified Code(s): S70.11XA - Contusion of right thigh, initial encounter - Discharge Information Referrals: PCP,None [Primary Care Provider] -
== END 2017-08-09 15:22 | disposition home or self-care (01) ==
LOC: JP.ED 14:16
DX: K70.9 Alcoholic liver disease, unspecified (principal); M79.81 Nontraumatic hematoma of soft tissue; F17.210 Nicotine dependence, cigarettes, uncomplicated; F90.9 Attention-deficit hyperactivity disorder, unspecified type; Z79.899 Other long term (current) drug therapy; Z88.1 Allergy status to other antibiotic agents; Z88.5 Allergy status to narcotic agent; Z88.8 Allergy status to other drugs, medicaments and biological substances
CPT/HCPCS: 99283